=== PATIENT | female | born 1975 | race Caucasian/White ===

== ENCOUNTER → 2020-05-01 09:43 | Outpatient (CLI) | payer OTHER, SELFPAY ==
--- NOTE | ~2020-05-01 | CT_ITS ---
EXAMINATION: CT sinus wo con DATE: 05/01/2020 10:07 INDICATION: Chronic sinusitis. TECHNIQUE: Computed tomography (CT) of the paranasal sinuses was performed without intravenous contra st. Iterative reconstruction technique was employed. The dose-length product was 294.16 mGy-cm. COMPARISON: None FINDINGS: There is complete opacification of the frontal sinuses and near complete opacification of t he ethmoid sinuses. There is moderate mucosal thickening in the sphenoid sinuses. There is complete o pacification of the maxillary sinuses. There is leftward deviation of the nasal septum. The ostiomeat al units are totally occluded. There is mucosal thickening in the nasal cavity. There is multifocal b one erosion including a small dehiscence of the right ethmoid skull base. IMPRESSION: 1. 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 2. Leftward deviation of the nasal septum. Reviewed, dictated and finalized at location [facility] [employer]
== END ==
PROVIDERS: PCP Internal Medicine Infectious Disease; Visit Provider Otolaryngology
DX: J32.9 Chronic sinusitis, unspecified (principal); J34.2 Deviated nasal septum
CPT/HCPCS: 70486